=== PATIENT | male | born 1960 | race American Indian/Alaskan Native ===

== ENCOUNTER 2016-09-16 22:32 | Observation (INO) | payer OTHER ==
[2016-09-16 22:49] VITALS: BMI 24.3
--- NOTE | 2016-09-16 22:59 | ED PDOC ---
Arrival/HPI - General Chief Complaint: Alcohol Ingestion Time Seen by Provider: 09/16/16 22:51 Historian: Patient - History of Present Illness Narrative History of Present Illness (Text): 09/16/16 22:57 56-year-old male presents today found sitting between 2 cars. Patient complaining of chest pain. denies fevers or chills. Denies trauma or injury. Admits to drinking alcohol today. Patient denies abdominal pain or vomiting or diarrhea. Patient states chest pain started 1 hour ago while sitting on the couch. Past Medical History - Provider Review Nursing Documentation Reviewed: Yes - Travel History Have you recently traveled outside [place] w/in the past 3 mons?: No - Infectious Disease Hx of Infectious Diseases: None - Tetanus Immunization Tetanus Immunization: Up to Date - Past Medical History Past Medical History: No Previous - Cardiac Hx Cardiac Disorders: Yes Hx Hypertension: Yes - Pulmonary Hx Respiratory Disorders: No - Neurological Hx Neurological Disorder: Yes Other/Comment: hyperacive disorder - HEENT Hx HEENT Disorder: No - Renal Hx Renal Disorder: No - Endocrine/Metabolic Hx Endocrine Disorders: No - Hematological/Oncological Hx Blood Disorders: No - Integumentary Hx Dermatological Disorder: No - Musculoskeletal/Rheumatological Hx Arthritis: Yes Hx Back Pain: Yes Hx Fractures: Yes Hx Herniated Disk: Yes - Gastrointestinal Hx Gastrointestinal Disorders: Yes - Genitourinary/Gynecological Hx Genitourinary Disorders: No - Psychiatric Hx Psychophysiologic Disorder: Yes Hx Anxiety: Yes Hx Bipolar Disorder: Yes Hx Substance Use: Yes - Surgical History Other/Comment: SURGERY R/T TRAUMAleft leg x3 plates removed herniated discs - Anesthesia Hx Anesthesia: Yes Hx Anesthesia Reactions: No Hx Malignant Hyperthermia: No - Suicidal Assessment Feels Threatened In Home Enviroment: No Family/Social History - Physician Review Nursing Documentation Reviewed: Yes Family/Social History: Unknown Family HX Smoking Status: Heavy Smoker > 10 Cigarettes Daily Hx Alcohol Use: Yes Hx Substance Use: Yes Substance used: cocaine Hx Substance Use Treatment: No Allergies/Home Meds Allergies/Adverse Reactions: Allergies strawberry Allergy (Verified 09/16/16 22:52) SWELLING Home Medications: Home Meds Medication Instructions Recorded Confirmed Losartan [Cozaar] 50 mg PO DAILY 01/19/16 01/28/16 Review of Systems - Review of Systems Constitutional: absent: Fatigue, Fevers Respiratory: absent: SOB, Cough Cardiovascular: Chest Pain. absent: Palpitations Gastrointestinal: absent: Abdominal Pain, Nausea, Vomiting Genitourinary Male: absent: Dysuria Musculoskeletal: absent: Arthralgias, Back Pain, Neck Pain Skin: absent: Rash, Pruritis Neurological: absent: Headache, Dizziness Psychiatric: absent: Anxiety, Depression Physical Exam Vital Signs Reviewed: Yes Vital Signs Temp Pulse Resp BP Pulse Ox 09/16/16 22:54 97.7 F 72 20 184/116 H 98 Temperature: Afebrile Blood Pressure: Hypertensive Pulse: Regular Respiratory Rate: Normal Appearance: Positive for: Well-Appearing, Non-Toxic, Uncomfortable Pain Distress: None Mental Status: Positive for: Alert and Oriented X 3 - Systems Exam Head: Present: Atraumatic Mouth: Present: Moist Mucous Membranes Neck: Present: Normal Range of Motion Respiratory/Chest: Present: Clear to Auscultation, Good Air Exchange. No: Respiratory Distress, Accessory Muscle Use Cardiovascular: Present: Regular Rate and Rhythm, Normal S1, S2. No: Murmurs Abdomen: No: Tenderness Upper Extremity: Present: Normal ROM Lower Extremity: Present: Normal ROM. No: Edema Neurological: Present: GCS=15, Speech Normal Skin: Present: Warm, Dry, Normal Color. No: Rashes Psychiatric: Present: Alert, Oriented x 3 Medical Decision Making ED Course and Treatment: 09/16/16 22:59 pt with chest pain ; hypertensive. cbc; wnl cmp; wnl trop: 0.01 ekg; nsr at 67b/m right axis deviation cxr: no infiltrate uds; positive for cocaine and amphetamines asa nitro pt reassessment; pt feeling better after nitro and asa; bp improved to 160/[address] bueno; he would like to have patient admitted to hospitalist service. case discussed with Dr. enriquez will Admit observational status to Tele for chest pain r/o acs. impression; chest pain Admit observational status to tele; - Lab Interpretations Lab Results: 09/16/16 23:05 09/16/16 23:05 Lab Results 09/17/16 00:03: Urine Opiates Screen Negative, Urine Methadone Screen Negative, Ur Barbiturates Screen Negative, Ur Phencyclidine Scrn Negative, Ur Amphetamines Screen Positive H, U Benzodiazepines Scrn Negative, U Oth Cocaine Metabols Positive H, U Cannabinoids Screen Negative 09/16/16 23:51: Urine Color Yellow, Urine Appearance Clear, Urine pH 7.0, Ur Specific [place] 1.015, Urine Protein Negative, Urine Glucose (UA) Negative, Urine Ketones Negative, Urine Blood Negative, Urine Nitrate Negative, Urine Bilirubin Negative, Urine Urobilinogen 0.2, Ur Leukocyte Esterase Negative 09/16/16 23:05: WBC 5.6, RBC 5.23, Hgb 16.0, Hct 44.7, MCV 85.5, MCH 30.6, MCHC 35.8, RDW 12.7, Plt Count 275, MPV 9.5, Gran % 57.2, Lymph % (Auto) 32.1, [place] % (Auto) 8.6 H, Eos % (Auto) 1.6, Baso % (Auto) 0.5, Gran # 3.17, Lymph # 1.8, [place] # 0.5, Eos # 0.1, Baso # 0.03, PT 10.7, INR 0.99, APTT 26.5, Sodium 132, Potassium 3.6, Chloride 99, Carbon Dioxide 23, Anion Gap 14, BUN 16, Creatinine 1.1, Est GFR ( Amer) > 60, Est GFR (Non-Af Amer) > 60, Random Glucose 90 , Calcium 9.0, Total Bilirubin 1.6 H, AST 55, ALT 10, Alkaline Phosphatase 114, Lactate Dehydrogenase 522, Total Creatine Kinase 513 H, CK-MB (CK-2) 2.6, CK-MB (CK-2) % Cancelled, Troponin I 0.01, Total Protein 7.9, Albumin 4.1, Globulin 3.8, Albumin/Globulin Ratio 1.1, Salicylates 2, Acetaminophen < 10.0 L, Alcohol , Quantitative < 10 - RAD Interpretation Radiology Orders: 09/16/16 22:53 CHEST PORTABLE [RAD] Stat - Medication Orders Current Medication Orders: Discontinued Medications Aspirin (Aspirin) 325 mg PO STAT STA Stop: 09/16/16 23:18 Last Admin: 09/16/16 23:23 Dose: 325 MG Nitroglycerin (Nitro-Bid 2% Oint) 1 ea TOP STAT STA Stop: 09/16/16 23:22 Last Admin: 09/16/16 23:30 Dose: 1 EA Disposition/Present on Arrival - Present on Arrival Any Indicators Present on Arrival: No History of DVT/PE: No History of Uncontrolled Diabetes: No Urinary Catheter: No History of Decub. Ulcer: No History Surgical Site Infection Following: None - Disposition Have Diagnosis and Disposition been Completed?: Yes Diagnosis: Pain in the chest Disposition: HOSPITALIZED Disposition Time: 01:11 Patient Plan: Observation Condition: FAIR Discharge Instructions (ExitCare): Chest Pain (ED)
[2016-09-16 23:12] LABS: ADD MANUAL DIFF? NO
[2016-09-16] MEDS ORDERED: Nitroglycerin 2% Ointment Foilpak UD TOP STA (23:21)
[2016-09-16 23:28] LABS: ALB/GLOB RATIO 1.1 (1.1-1.8); ALKALINE PHOSPHATASE 114 U/L (38-133); ALT/SGPT 10 U/L (7-56); AST/SGOT 55 U/L (15-59); BILIRUBIN,TOTAL 1.6 mg/dL (0.2-1.3); BLOOD UREA NITROGEN 16 mg/dL (7-21); CARBON DIOXIDE 23 mmol/L (21-33); CHLORIDE 99 mmol/L (98-107); GFR AFRICAN-AMERICAN > 60; GLUCOSE,RANDOM 90 mg/dL (70-110); POTASSIUM 3.6 mmol/L (3.6-5.0); SODIUM 132 mmol/L (132-148); TOTAL PROTEIN 7.9 g/dL (5.8-8.3)
[2016-09-16 23:41] LABS: BASO # 0.03 K/mm3 (0.0-2.0); BASO % 0.5 % (0.0-3.0); EOS # 0.1 (0.0-0.7); EOS % 1.6 % (1.5-5.0); GRAN # 3.17 (1.4-6.5); GRAN % 57.2 % (50.0-68.0); HEMATOCRIT 44.7 % (42.0-52.0); LYMPH # 1.8 (1.2-3.4); LYMPH % 32.1 % (22.0-35.0); MEAN CELL VOLUME 85.5 fL (80.0-105.0); MEAN CORPUSCULAR HEMOGLOBIN 30.6 pg (25.0-35.0); MEAN CORPUSCULAR HGB CONC 35.8 g/dl (31.0-37.0); MEAN PLATELET VOLUME 9.5 fl (7.0-11.0); MONO # 0.5 (0.1-0.6); MONO % 8.6 % (1.0-6.0); PLATELET COUNT 275 10^3/uL (120.0-450.0); RED CELL DISTRIBUTION WIDTH 12.7 % (11.5-14.5); WHITE BLOOD COUNT 5.6 10^3/ul (4.5-11.0)
[2016-09-16 23:46] LABS: INR 0.99 (0.93-1.08); PARTIAL THROMBOPLASTIN TIME 26.5 Seconds (23.7-30.8)
[2016-09-16 23:50] LABS: TROPONIN I 0.01 ng/mL
[2016-09-17 00:17] LABS: URINE BILIRUBIN NEGATIVE (NEGATIVE); URINE BLOOD NEGATIVE (NEGATIVE); URINE GLUCOSE (UA) NEGATIVE (NEGATIVE); URINE KETONE NEGATIVE (NEGATIVE); URINE LEUKOCYTE ESTERASE NEGATIVE Leu/uL (NEGATIVE); URINE PROTEIN NEGATIVE mg/dL (<30 mg/dL); URINE UROBILINOGEN 0.2 E.U./dL (<1 E.U./dL)
[2016-09-17 00:23] LABS: URINE APPEARANCE CLEAR (CLEAR); URINE COLOR YELLOW (YELLOW)
--- NOTE | 2016-09-17 01:35 | CP.PCM.HP ---
History of Present Illness - History of Present Illness History of Present Illness: This is a 56 yo male with past medical hx of HTN and anxiety presenting with chest pain x 2 hrs. Pain began at pt's home when pt was drinking with his friends. Pt says he has had 3 bottles of smirnoff today. Pain came on gradually , diffusely across chest. Positive radiation to left shoulder, does report left hand feeling numb. Has happened before, but not as severe. Cannot say circumstances last time it happened. Denies drug use today. Describes sensation as pressure. Was 8/10, at time of eval 11/29. Pain occurs at rest and with exertion. Associated sob. Denies fevers, chills, cough. Pt took blood pressure pill after pain started. Did not feel relief, called ambulance. PMH: HTN, anxiety PSH: Plates in left leg Allergies: NKDA Home meds: Losartan FH: "a lot of people in my family have had heart attacks" Social: 1 ppd for over 30 yrs. 1-2 cans beer each week. Denies current drug use. Admits to past use of cocaine. Present on Admission - Present on Admission Any Indicators Present on Admission: No History of DVT/PE: No History of Uncontrolled Diabetes: No Urinary Catheter: No Decubitus Ulcer Present: No Review of Systems - Review of Systems All systems: reviewed and no additional remarkable complaints except Review of Systems: Negative except as per HPI. Past Patient History - Infectious Disease Hx of Infectious Diseases: None - Tetanus Immunizations Tetanus Immunization: Up to Date - Past Medical History & Family History Past Medical History?: Yes Pertinent Family History: [place] in family - Past Social History Smoking Status: Heavy Smoker > 10 Cigarettes Daily Chewing Tobacco Use: No Cigar Use: No Alcohol: Social Drugs: Denies Home Situation {Lives}: Alone Domestic Violence: Negative - CARDIAC Hx Cardiac Disorders: Yes Hx Hypertension: Yes - PULMONARY Hx Respiratory Disorders: No - NEUROLOGICAL Hx Neurological Disorder: Yes Other/Comment: hyperacive disorder - HEENT Hx HEENT Problems: No - RENAL Hx Chronic Kidney Disease: No - ENDOCRINE/METABOLIC Hx Endocrine Disorders: No - HEMATOLOGICAL/ONCOLOGICAL Hx Blood Disorders: No - INTEGUMENTARY Hx Dermatological Problems: No - MUSCULOSKELETAL/RHEUMATOLOGICAL Hx Arthritis: Yes Hx Back Pain: Yes Hx Fractures: Yes Hx Herniated Disk: Yes - GASTROINTESTINAL Hx Gastrointestinal Disorders: Yes - GENITOURINARY/GYNECOLOGICAL Hx Genitourinary Disorders: No - PSYCHIATRIC Hx Psychophysiologic Disorder: Yes Hx Anxiety: Yes Hx Bipolar Disorder: Yes Hx Substance Use: Yes - SURGICAL HISTORY Other/Comment: SURGERY R/T TRAUMAleft leg x3 plates removed herniated discs - ANESTHESIA Hx Anesthesia: Yes Hx Anesthesia Reactions: No Hx Malignant Hyperthermia: No Meds Allergies/Adverse Reactions: Allergies Allergy/AdvReac Type Severity Reaction Status Date / Time strawberry Allergy SWELLING Verified 09/16/16 22:52 Physical Exam - Constitutional Appears: Non-toxic, No Acute Distress - Head Exam Head Exam: ATRAUMATIC, NORMAL INSPECTION, NORMOCEPHALIC - Eye Exam Eye Exam: EOMI - ENT Exam ENT Exam: Mucous Membranes Moist - Neck Exam Neck exam: Positive for: Full Rom, Normal Inspection - Respiratory Exam Respiratory Exam: Clear to Auscultation Bilateral, NORMAL BREATHING PATTERN - Cardiovascular Exam Cardiovascular Exam: REGULAR RHYTHM - GI/Abdominal Exam GI & Abdominal Exam: Normal Bowel Sounds, Soft. absent: Tenderness - Extremities Exam Extremities exam: Positive for: normal inspection - Neurological Exam Neurological exam: Alert, Oriented x3 - Psychiatric Exam Psychiatric exam: Anxious - Skin Skin Exam: Dry, Intact, Normal Color, Warm Results - Vital Signs Recent Vital Signs: Last Vital Signs Temp 97.7 F 09/16/16 22:54 Pulse 62 09/17/16 01:12 Resp 18 09/17/16 01:12 BP 147/67 09/17/16 01:12 Pulse Ox 100 09/17/16 01:12 - Labs Result Diagrams: 09/16/16 23:05 09/16/16 23:05 Assessment & Plan - Assessment and Plan (Free Text) Assessment: This is a 56 yo male with past medical hx of HTN and anxiety presenting with chest pain 1. Chest pain, R/O ACS -asa 81 daily -trend cardiac enzymes, 1st trop negative -losartan daily -ekg shows sinus rhythm -urine positive for cocaine/amphetamines -CXR pending -nitro paste given in ER -hold on statin at this time 2. Hx of HTN -losartan daily 3. GI/DVT ppx -protonix -SCDs dw Dr. Domingo
[2016-09-17] MEDS ORDERED: Pantoprazole 40 mg EC Tab PO SCH (06:30)
--- NOTE | 2016-09-17 07:30 | RAD ---
HISTORY: chest pain COMPARISON: 02/27/2016 FINDINGS: LUNGS: No active pulmonary disease. The prior lingular patchy infiltrate at the left lung base is not appreciated on this exam PLEURA: No significant pleural effusion identified, no pneumothorax apparent. CARDIOVASCULAR: Probable top-normal heart size OSSEOUS STRUCTURES: Mild thoracic spondylosis VISUALIZED UPPER ABDOMEN: A 4 cm peripheral rim calcification similar-appearing. They prior chest PE protocol study 03/03/2014 reported a calcified right upper renal pole mass here OTHER FINDINGS: None. IMPRESSION: No active disease. Prior lingular infiltrate - resolved Right upper abdominal quadrant peripheral calcified mass -as detailed above
[2016-09-17 08:29] LABS: TROPONIN I < 0.01 ng/mL
--- NOTE | 2016-09-17 09:03 | CARD ---
APPROVED REPORT EKG Measurement Heart [id number] [id number] <Conclusion> Normal sinus rhythm Right axis deviation T wave abnormality, consider anterior ischemia Abnormal ECG
[2016-09-17 09:08] LABS: HEMATOCRIT 42.2 % (42.0-52.0); MEAN CORPUSCULAR HEMOGLOBIN 30.1 pg (25.0-35.0); MEAN CORPUSCULAR HGB CONC 34.6 g/dl (31.0-37.0); MEAN PLATELET VOLUME 9.4 fl (7.0-11.0); RED CELL DISTRIBUTION WIDTH 12.9 % (11.5-14.5); WHITE BLOOD COUNT 5.7 10^3/ul (4.5-11.0)
[2016-09-17 09:38] LABS: BLOOD UREA NITROGEN 17 mg/dL (7-21); CALCIUM 8.7 mg/dL (8.4-10.5); CARBON DIOXIDE 23 mmol/L (21-33); CHLORIDE 104 mmol/L (95-110); CHOLESTEROL 172 mg/dL (130-200); GFR AFRICAN-AMERICAN > 60; GLUCOSE,RANDOM 90 mg/dL (70-110); SODIUM 136 mmol/L (132-148)
[2016-09-17 12:35] VITALS: RESP 20
[2016-09-17 12:55] VITALS: O2SAT 98
[2016-09-17] MEDS ORDERED: Iodixanol 320 MG/ML 100 ML BOTTLE IV ONE (13:56)
--- NOTE | 2016-09-17 14:18 | CON ---
DATE: 09/17/2016 REASON FOR CONSULTATION: Chest pain. The patient is a 56-year-old -[place] male who has a history of hypertension and who is a merced rinku abuser. Presented because of chest pain. The patient underwent cardiac catheterization in 2013 at [facility], which revealed unremarkable coronary circulation. The patient at this time is chest pain free. MEDICATIONS: Aspirin 81 mg once a day, Cozaar 50 mg once a day, Protonix 40 mg p.o. once a day. REVIEW OF SYSTEMS: No dizziness or syncope. No shortness of breath. PHYSICAL EXAMINATION: GENERAL: The patient is a middle-aged, muscular, -[place] male who does not appear to be in any distress. VITAL SIGNS: Blood pressure 124/74, heart rate 52, temperature 97.6, respiration 20. HEENT: Normocephalic. NECK: No JVD. CHEST: Clear. HEART: S1, S2 regular. ABDOMEN: Soft. A scar of previous umbilical hernia surgery. EXTREMITIES: No edema, no calf tenderness. LABORATORIES: Urine drug screen is positive for both cocaine and amphetamines. SMA-7 today is withi n normal limits. Two troponins are within normal limits. Lipid profile is within normal limits. CB C today is within normal limits. PT, PTT are within normal limits. EKG reveals sinus rhythm with an terior T-wave inversion, possible anterior ischemia. ASSESSMENT: 1. Chest pain, myocardial infarction is ruled out. 2. History of cocaine abuse. RECOMMENDATIONS: Continue current aspirin 81 mg once a day, Cozaar at 50 mg once a day, Protonix at 40 mg once a day. Obtain an echocardiogram as well as CT angio of the chest to rule out pulmonary em bolism. Jose F Durham MD cc: [id number] TT: 09/17/2016 14:18:33 Confirmation # [id number] Dictation # [id number]
--- NOTE | 2016-09-17 14:45 | CT ---
PROCEDURE: CT Chest with contrast (Pulmonary Angiogram) HISTORY: r/o PE COMPARISON: 05/28/2014 TECHNIQUE: Axial computed tomography images were obtained of the chest in the pulmonary arterial phase of enhancement. Coronal and sagittal reformatted images were created and reviewed. Intravenous contrast dose: 100 cc of Visipaque Radiation dose: Total exam DLP = 425 mGy-cm. FINDINGS: PULMONARY ARTERIES: Unremarkable. No pulmonary embolism. AORTA: No acute findings. No thoracic aortic aneurysm. LUNGS: Unremarkable. No nodule, mass or pulmonary consolidation. PLEURAL SPACES: Unremarkable. No effusion or pneuomothorax. HEART: Unremarkable. No cardiomegaly. No significant pericardial effusion. LYMPH NODES: No lymphadenopathy. BONES, CHEST WALL: Unremarkable. No fracture or destructive lesion OTHER FINDINGS: There is a rim calcified mass in the upper pole of the right kidney measuring 4.4 cm. This is unchanged IMPRESSION: Unremarkable CT pulmonary angiogram. No pulmonary embolus. Stable appearance of calcified mass in the upper pole of the right kidney
[2016-09-17 16:03] LABS: TROPONIN I < 0.01 ng/mL
--- NOTE | 2016-09-17 17:36 | CARD ---
APPROVED REPORT EXAM: Two-dimensional and M-mode echocardiogram with Doppler and color Doppler. INDICATION LVFX/CP 2D DIMENSIONS Left Atrium (2D)3.8 (1.6-4.0cm)IVSd1.0 (0.7-1.1cm) LVDd4.3 (3.9-5.9cm)PWd1.1 (0.7-1.1cm) LVDs2.8 (2.5-4.0cm)FS (%) 35.1 % LVEF (%)64.7 (>50%) M-Mode DIMENSIONS Aortic Root3.30 (2.2-3.7cm)Aortic Cusp Exc.1.70 (1.5-2.0cm) Aortic Valve AoV Peak Qqjbkbgy606.0cm/sAoV VTI35.0cmAO Peak GR.13mmHg LVOT Peak Novnhwrx924.0cm/sLVOT VTI19.30cmAO Mean GR.7mmHg Mitral Valve MV E Crenkfua54.0cm/sMV A Kqhmbypi80.5cm/sE/A ratio0.7 TDI Lateral E' Peak V11.10cm/sMedial E' Peak V7.51cm/sE/Lateral E'5.2 E/Medial E'7.7 Pulmonary Valve PV Peak Jxlltqho57.5cm/sPV Peak Grad.3mmHg Tricuspid Valve TR Peak Walyovri479cv/sRAP JPVQDEBT90daHtHS Peak Gr.20mmHg [id number] LEFT VENTRICLE The left ventricle is normal size. There is normal left ventricular wall thickness. The left ventricular function is normal.EF-65% There is normal LV segmental wall motion. Transmitral Doppler flow pattern is Grade III-reversible restrictive diastolic dysfunction. No left ventricle thrombus noted on this study. There is no ventricular septal defect visualized. There is no left ventricular aneurysm. There is no mass noted in the left ventricle. RIGHT VENTRICLE The right ventricle is normal size. There is normal right ventricular wall thickness. The right ventricular systolic function is normal. ATRIA The left atrium size is normal. The right atrium size is normal. The interatrial septum is intact with no evidence for an atrial septal defect. AORTIC VALVE The aortic valve is thickened but opens well. There is trace to mild aortic regurgitation. There is no aortic valvular stenosis. There is no aortic valvular vegetation. MITRAL VALVE The mitral valve is thickened but opens well. Mitral regurgitation is trace to mild. There is no mitral valve stenosis. There is no evidence of mitral valve prolapse. TRICUSPID VALVE The tricuspid valve is normal in structure. There is trace to mild tricuspid regurgitation.RVSP-30 mmofHg. There is no tricuspid valve stenosis. There is no tricuspid valve prolapse or vegetation. PULMONIC VALVE The pulmonary valve is normal in structure. There is trace pulmonic valvular regurgitation. There is no pulmonic valvular stenosis. GREAT VESSELS The aortic root is normal in size. The ascending aorta is normal in size. The pulmonary artery is normal. The IVC is normal in size and collapses >50% with inspiration. PERICARDIAL EFFUSION There is no pleural effusion. There is no pericardial effusion. <Conclusion> Normal chamber Size. EF-65% Trace to Mild MR/TR/AR RVSP-30 mmof hg.
--- NOTE | 2016-09-17 17:55 | CP.PCM.DIS ---
<Jayjay Ramos - Last Filed: 09/19/16 00:31> Provider - Provider Date of Admission: 09/17/16 00:49 Attending physician: Robel Sparks MD Consults: Cardio - Dr. Durham Time Spent in preparation of Discharge (in minutes): 45 Diagnosis - Discharge Diagnosis (1) Pain in the chest Status: Acute Priority: Low (2) HTN (hypertension) Status: Chronic Priority: Medium Hospital Course - Lab Results Lab Results: Most Recent Lab Values WBC 5.7 10^3/ul (4.5-11.0) 09/17/16 07:45 RBC 4.85 10^6/uL (3.5-6.1) 09/17/16 07:45 Hgb 14.6 gm/dL (14.0-18.0) 09/17/16 07:45 Hct 42.2 % (42.0-52.0) 09/17/16 07:45 MCV 87.0 fL (80.0-105.0) 09/17/16 07:45 MCH 30.1 pg (25.0-35.0) 09/17/16 07:45 MCHC 34.6 g/dl (31.0-37.0) 09/17/16 07:45 RDW 12.9 % (11.5-14.5) 09/17/16 07:45 Plt Count 239 10^3/uL (120.0-450.0) 09/17/16 07:45 MPV 9.4 fl (7.0-11.0) 09/17/16 07:45 Gran % 57.2 % (50.0-68.0) 09/16/16 23:05 Lymph % (Auto) 32.1 % (22.0-35.0) 09/16/16 23:05 [place] % (Auto) 8.6 % (1.0-6.0) H 09/16/16 23:05 Eos % (Auto) 1.6 % (1.5-5.0) 09/16/16 23:05 Baso % (Auto) 0.5 % (0.0-3.0) 09/16/16 23:05 Gran # 3.17 (1.4-6.5) 09/16/16 23:05 Lymph # 1.8 (1.2-3.4) 09/16/16 23:05 [place] # 0.5 (0.1-0.6) 09/16/16 23:05 Eos # 0.1 (0.0-0.7) 09/16/16 23:05 Baso # 0.03 K/mm3 (0.0-2.0) 09/16/16 23:05 PT 10.7 Seconds (9.9-11.8) 09/16/16 23:05 INR 0.99 (0.93-1.08) 09/16/16 23:05 APTT 26.5 Seconds (23.7-30.8) 09/16/16 23:05 Sodium 136 mmol/L (132-148) 09/17/16 07:45 Potassium 4.0 mmol/L (3.6-5.0) 09/17/16 07:45 Chloride 104 mmol/L (95-110) 09/17/16 07:45 Carbon Dioxide 23 mmol/L (21-33) 09/17/16 07:45 Anion Gap 13 (10-20) 09/17/16 07:45 BUN 17 mg/dL (7-21) 09/17/16 07:45 Creatinine 1.2 mg/dL (0.5-1.4) 09/17/16 07:45 Est GFR ( Amer) > 60 09/17/16 07:45 Est GFR (Non-Af Amer) > 60 09/17/16 07:45 Random Glucose 90 mg/dL (70-110) 09/17/16 07:45 Calcium 8.7 mg/dL (8.4-10.5) 09/17/16 07:45 Total Bilirubin 1.6 mg/dL (0.2-1.3) H 09/16/16 23:05 AST 55 U/L (15-59) 09/16/16 23:05 ALT 10 U/L (7-56) 09/16/16 23:05 Alkaline Phosphatase 114 U/L (38-133) 09/16/16 23:05 Lactate Dehydrogenase 322 U/L (333-699) L 09/17/16 15:25 Total Creatine Kinase 340 U/L (35-230) H 09/17/16 15:25 CK-MB (CK-2) 2.2 ng/mL (0.0-3.6) 09/17/16 15:25 CK-MB (CK-2) % Cancelled 09/16/16 23:05 Troponin I < 0.01 ng/mL 09/17/16 15:25 Total Protein 7.9 g/dL (5.8-8.3) 09/16/16 23:05 Albumin 4.1 g/dL (3.0-4.8) 09/16/16 23:05 Globulin 3.8 gm/dL 09/16/16 23:05 Albumin/Globulin Ratio 1.1 (1.1-1.8) 09/16/16 23:05 Triglycerides 60 mg/dL (35-160) 09/17/16 07:45 Cholesterol 172 mg/dL (130-200) 09/17/16 07:45 LDL Cholesterol Direct 116 mg/dL (0-129) 09/17/16 07:45 HDL Cholesterol 44 mg/dL (29-60) 09/17/16 07:45 Urine Color Yellow (YELLOW) 09/16/16 23:51 Urine Appearance Clear (CLEAR) 09/16/16 23:51 Urine pH 7.0 (4.7-8.0) 09/16/16 23:51 Ur Specific [place] 1.015 (1.005-1.035) 09/16/16 23:51 Urine Protein Negative mg/dL (<30 mg/dL) 09/16/16 23:51 Urine Glucose (UA) Negative mg/dL (NEGATIVE) 09/16/16 23:51 Urine Ketones Negative mg/dL (NEGATIVE) 09/16/16 23:51 Urine Blood Negative (NEGATIVE) 09/16/16 23:51 Urine Nitrate Negative (NEGATIVE) 09/16/16 23:51 Urine Bilirubin Negative (NEGATIVE) 09/16/16 23:51 Urine Urobilinogen 0.2 E.U./dL (<1 E.U./dL) 09/16/16 23:51 Ur Leukocyte Esterase Negative [place]/uL (NEGATIVE) 09/16/16 23:51 Salicylates 2 mg/dL (2.0-20.0) 09/16/16 23:05 Urine Opiates Screen Negative (NEGATIVE) 09/17/16 00:03 Urine Methadone Screen Negative (NEGATIVE) 09/17/16 00:03 Acetaminophen < 10.0 ug/ml (10.0-20.0) L 09/16/16 23:05 Ur Barbiturates Screen Negative (NEGATIVE) 09/17/16 00:03 Ur Phencyclidine Scrn Negative (NEGATIVE) 09/17/16 00:03 Ur Amphetamines Screen Positive (NEGATIVE) H 09/17/16 00:03 U Benzodiazepines Scrn Negative (NEGATIVE) 09/17/16 00:03 U Oth Cocaine Metabols Positive (NEGATIVE) H 09/17/16 00:03 U Cannabinoids Screen Negative (NEGATIVE) 09/17/16 00:03 Alcohol, Quantitative < 10 mg/dL (0-10) 09/16/16 23:05 - Hospital Course Hospital Course: 56 y/o M with PMH of HTN and bipolar disorder presented to the hospital for chest pain x 1 day. [facility] [place] cocaine [facility] and came in to the hospital for sudden onset of chest pain. EKG shows NSR with no ST abnormalities. Pt was seen by Dr. Durham for cardio. Echocardiogram showed normal EF of 65% with no major abnormalities (See report). Chest CT showed no evidence of pulmonary embolism. Pt was advised to refrain from using recreational drugs. Discharge Exam - Head Exam Head Exam: ATRAUMATIC, NORMAL INSPECTION, NORMOCEPHALIC - Respiratory Exam Respiratory Exam: NORMAL BREATHING PATTERN, UNREMARKABLE - Cardiovascular Exam Cardiovascular Exam: RRR, +S1, +S2 - GI/Abdominal Exam GI & Abdominal Exam: Normal Bowel Sounds, Unremarkable. absent: Tenderness - Extremities Exam Extremities exam: normal inspection - Neurological Exam Neurological exam: Alert, Oriented x3 - Psychiatric Exam Psychiatric exam: Anxious, Normal Affect - Skin Skin Exam: Intact, Normal Color, Warm Discharge Plan - Follow Up Plan Condition: FAIR Disposition: HOME/ ROUTINE Instructions: Amphetamine (By mouth), Losartan (By mouth), Chest Pain (ED), How to Stop Smoking (GEN), Cigarette Smoking and Your Health (GEN), Cocaine Abuse (GEN), Abuse of Alcohol (GEN), Anxiety (GEN) Additional Instructions: Stop using illicit drugs Continue all home medications Return to hospital for return or worsening of symptoms Diet : Heart Healthy diet Patient refuses the flu and the pneumococcal vaccines as of this writing. <Robel Sparks - Last Filed: 09/19/16 06:36> Provider - Provider Date of Admission: 09/17/16 00:49 Attending physician: Robel Sparks MD Hospital Course - Lab Results Lab Results: Most Recent Lab Values WBC 5.7 10^3/ul (4.5-11.0) 09/17/16 07:45 RBC 4.85 10^6/uL (3.5-6.1) 09/17/16 07:45 Hgb 14.6 gm/dL (14.0-18.0) 09/17/16 07:45 Hct 42.2 % (42.0-52.0) 09/17/16 07:45 MCV 87.0 fL (80.0-105.0) 09/17/16 07:45 MCH 30.1 pg (25.0-35.0) 09/17/16 07:45 MCHC 34.6 g/dl (31.0-37.0) 09/17/16 07:45 RDW 12.9 % (11.5-14.5) 09/17/16 07:45 Plt Count 239 10^3/uL (120.0-450.0) 09/17/16 07:45 MPV 9.4 fl (7.0-11.0) 09/17/16 07:45 Gran % 57.2 % (50.0-68.0) 09/16/16 23:05 Lymph % (Auto) 32.1 % (22.0-35.0) 09/16/16 23:05 [place] % (Auto) 8.6 % (1.0-6.0) H 09/16/16 23:05 Eos % (Auto) 1.6 % (1.5-5.0) 09/16/16 23:05 Baso % (Auto) 0.5 % (0.0-3.0) 09/16/16 23:05 Gran # 3.17 (1.4-6.5) 09/16/16 23:05 Lymph # 1.8 (1.2-3.4) 09/16/16 23:05 [place] # 0.5 (0.1-0.6) 09/16/16 23:05 Eos # 0.1 (0.0-0.7) 09/16/16 23:05 Baso # 0.03 K/mm3 (0.0-2.0) 09/16/16 23:05 PT 10.7 Seconds (9.9-11.8) 09/16/16 23:05 INR 0.99 (0.93-1.08) 09/16/16 23:05 APTT 26.5 Seconds (23.7-30.8) 09/16/16 23:05 Sodium 136 mmol/L (132-148) 09/17/16 07:45 Potassium 4.0 mmol/L (3.6-5.0) 09/17/16 07:45 Chloride 104 mmol/L (95-110) 09/17/16 07:45 Carbon Dioxide 23 mmol/L (21-33) 09/17/16 07:45 Anion Gap 13 (10-20) 09/17/16 07:45 BUN 17 mg/dL (7-21) 09/17/16 07:45 Creatinine 1.2 mg/dL (0.5-1.4) 09/17/16 07:45 Est GFR ( Amer) > 60 09/17/16 07:45 Est GFR (Non-Af Amer) > 60 09/17/16 07:45 Random Glucose 90 mg/dL (70-110) 09/17/16 07:45 Calcium 8.7 mg/dL (8.4-10.5) 09/17/16 07:45 Total Bilirubin 1.6 mg/dL (0.2-1.3) H 09/16/16 23:05 AST 55 U/L (15-59) 09/16/16 23:05 ALT 10 U/L (7-56) 09/16/16 23:05 Alkaline Phosphatase 114 U/L (38-133) 09/16/16 23:05 Lactate Dehydrogenase 322 U/L (333-699) L 09/17/16 15:25 Total Creatine Kinase 340 U/L (35-230) H 09/17/16 15:25 CK-MB (CK-2) 2.2 ng/mL (0.0-3.6) 09/17/16 15:25 CK-MB (CK-2) % Cancelled 09/16/16 23:05 Troponin I < 0.01 ng/mL 09/17/16 15:25 Total Protein 7.9 g/dL (5.8-8.3) 09/16/16 23:05 Albumin 4.1 g/dL (3.0-4.8) 09/16/16 23:05 Globulin 3.8 gm/dL 09/16/16 23:05 Albumin/Globulin Ratio 1.1 (1.1-1.8) 09/16/16 23:05 Triglycerides 60 mg/dL (35-160) 09/17/16 07:45 Cholesterol 172 mg/dL (130-200) 09/17/16 07:45 LDL Cholesterol Direct 116 mg/dL (0-129) 09/17/16 07:45 HDL Cholesterol 44 mg/dL (29-60) 09/17/16 07:45 Urine Color Yellow (YELLOW) 09/16/16 23:51 Urine Appearance Clear (CLEAR) 09/16/16 23:51 Urine pH 7.0 (4.7-8.0) 09/16/16 23:51 Ur Specific [place] 1.015 (1.005-1.035) 09/16/16 23:51 Urine Protein Negative mg/dL (<30 mg/dL) 09/16/16 23:51 Urine Glucose (UA) Negative mg/dL (NEGATIVE) 09/16/16 23:51 Urine Ketones Negative mg/dL (NEGATIVE) 09/16/16 23:51 Urine Blood Negative (NEGATIVE) 09/16/16 23:51 Urine Nitrate Negative (NEGATIVE) 09/16/16 23:51 Urine Bilirubin Negative (NEGATIVE) 09/16/16 23:51 Urine Urobilinogen 0.2 E.U./dL (<1 E.U./dL) 09/16/16 23:51 Ur Leukocyte Esterase Negative [place]/uL (NEGATIVE) 09/16/16 23:51 Salicylates 2 mg/dL (2.0-20.0) 09/16/16 23:05 Urine Opiates Screen Negative (NEGATIVE) 09/17/16 00:03 Urine Methadone Screen Negative (NEGATIVE) 09/17/16 00:03 Acetaminophen < 10.0 ug/ml (10.0-20.0) L 09/16/16 23:05 Ur Barbiturates Screen Negative (NEGATIVE) 09/17/16 00:03 Ur Phencyclidine Scrn Negative (NEGATIVE) 09/17/16 00:03 Ur Amphetamines Screen Positive (NEGATIVE) H 09/17/16 00:03 U Benzodiazepines Scrn Negative (NEGATIVE) 09/17/16 00:03 U Oth Cocaine Metabols Positive (NEGATIVE) H 09/17/16 00:03 U Cannabinoids Screen Negative (NEGATIVE) 09/17/16 00:03 Alcohol, Quantitative < 10 mg/dL (0-10) 09/16/16 23:05 Attending/Attestation - Attestation I have personally seen and examined this patient.: Yes I have fully participated in the care of the patient.: Yes I have reviewed all pertinent clinical information, including history, physical exam and plan: Yes Notes (Text): 09/17/16 56 year old male with past medical history of hypertension and bipolar disorder who presented with complaint of chest pain x 1 day. He admitted to recent cocaine use. He was admitted to telemetry unit for observation. Serial cardiac enzymes were negative and ACS was ruled out. CT angio was negative and echocardiogram was reviewed as above. He was seen by cardiology. He was counselled on risks of continued substance. He is discharged home to follow up with his pmd. Case was discussed with his pmd Dr. Tripp earlier today. Robel Sparks MD Hospitalist.
[2016-09-17 18:05] VITALS: BP 143/71; PULSE 53; TEMP 97.7
== END 2016-09-17 18:59 | disposition home or self-care (01) ==
LOC: ED 22:32 → ERH 09-17 00:49 → 2RSO 09-17 01:46
PROVIDERS: ADMIT Internal Medicine; ATTEND Internal Medicine
DX: R07.9 Chest pain, unspecified (principal); F14.10 Cocaine abuse, uncomplicated; F31.9 Bipolar disorder, unspecified; I10 Essential (primary) hypertension; Z79.82 Long term (current) use of aspirin; Z79.899 Other long term (current) drug therapy; M19.90 Unspecified osteoarthritis, unspecified site; M54.9 Dorsalgia, unspecified; Z87.81 Personal history of (healed) traumatic fracture; M51.26 Other intervertebral disc displacement, lumbar region; F41.9 Anxiety disorder, unspecified; Z87.898 Personal history of other specified conditions; F17.210 Nicotine dependence, cigarettes, uncomplicated; R20.0 Anesthesia of skin; Z91.018 Allergy to other foods
CPT/HCPCS: 36415; 71010; 71275; 80048; 80053; 80061; 80320; 80324; 80329; 80345; 80346; 80349; 80353; 80358; 80361; 81003; 82550; 82553; 83615; 83992; 84484; 85025; 85027; 85610; 85730; 93005; 93306; 99285; G0378; Q9967

== ENCOUNTER 2016-10-31 10:35 | Emergency (ER) | payer OTHER ==
[2016-10-31 10:38] VITALS: BMI 27.4
[2016-10-31 10:42] VITALS: TEMP 97.7
--- NOTE | 2016-10-31 10:57 | ED PDOC ---
Arrival/HPI - General Chief Complaint: Flu-like Symptoms Time Seen by Provider: 10/31/16 10:48 Historian: Patient - History of Present Illness Narrative History of Present Illness (Text): 10/31/16 10:53 A 56 year old male, whose past medical history includes hypertension, presents to the emergency department complaining of nasal congestion for the past few days. Patient notes minimal posterior nasal drip. Contrary to triages note, patient denies any nausea. Patient denies any fever, chills, vomiting, abdominal pain, chest pain, shortness of breath, dyspnea on exertion, cough or any other complaints. PMD: Dr. Srinath Tripp Time/Duration: < week Symptom Course: Unchanged Quality: Other Context: Other Past Medical History - Provider Review Nursing Documentation Reviewed: Yes - Infectious Disease Hx of Infectious Diseases: None - Tetanus Immunization Tetanus Immunization: Up to Date - Past Medical History Past Medical History: No Previous - Cardiac Hx Cardiac Disorders: Yes Hx Hypertension: Yes - Pulmonary Hx Respiratory Disorders: No - Neurological Hx Neurological Disorder: Yes - HEENT Hx HEENT Disorder: No - Renal Hx Renal Disorder: No - Endocrine/Metabolic Hx Endocrine Disorders: No - Hematological/Oncological Hx Blood Disorders: No - Integumentary Hx Dermatological Disorder: No - Musculoskeletal/Rheumatological Hx Falls: No - Gastrointestinal Hx Gastrointestinal Disorders: Yes - Genitourinary/Gynecological Hx Genitourinary Disorders: No - Psychiatric Hx Psychophysiologic Disorder: Yes Hx Anxiety: Yes Hx Bipolar Disorder: Yes Hx Substance Use: No - Surgical History Hx Orthopedic Surgery: Yes (Left leg surgery with plates) - Anesthesia Hx Anesthesia: Yes Hx Anesthesia Reactions: No Hx Malignant Hyperthermia: No - Suicidal Assessment Feels Threatened In Home Enviroment: No Family/Social History - Physician Review Nursing Documentation Reviewed: Yes Family/Social History: No Known Family HX Smoking Status: Heavy Smoker > 10 Cigarettes Daily Hx Alcohol Use: Yes Frequency of alcohol use: Few days per week Hx Substance Use: No Substance used: cocaine Hx Substance Use Treatment: No Allergies/Home Meds Allergies/Adverse Reactions: Allergies strawberry Allergy (Verified 10/31/16 10:38) SWELLING Physical Exam - Physical Exam Narrative Physical Exam (Text): - Review of Systems Constitutional: Normal. absent: Fatigue, Weight Change, Fevers Eyes: Normal ENT: Nasal congestion. denies sore throat, denies tristhmus Respiratory: Normal. absent: SOB, Cough, Sputum Cardiovascular: absent: Chest Pain, Palpitations, Syncope Gastrointestinal: Normal. absent: Abdominal Pain, Diarrhea, Nausea, Vomiting Genitourinary: Normal. absent: Dysuria, Frequency, Hematuria Musculoskeletal: Normal. absent: Arthralgias, Back Pain, Neck Pain Skin: no rashes, no erythema Neurological: absent: Focal Weakness Endocrine: Normal Hemo/Lymphatic: Normal Psychiatric: No suicidal or homicidal ideations - Physical exam Patient appears age appropriate, speaking full sentences without difficulty - Systems Exam Head: Present: Atraumatic, Normocephalic Pupils: Present: PERRL Extraocular Muscles: Present: EOMI Conjunctiva: Present: Normal ENT: Non-erythematous posterior pharynx, No pain with hyoid manipulation, No muffled voice, no floor of mouth pain or elevation Mouth: Present: Moist Mucous Membranes Neck: Present: Normal Range of Motion. No: MIDLINE TENDERNESS, Paraspinal Tenderness Respiratory/Chest: Present: Clear to Auscultation, Good Air Exchange. No: Respiratory Distress, Accessory Muscle Use, Tachypneic Cardiovascular: Present: Regular Rate and Rhythm, Normal S1, S2, Peripheral Pulses Present. No: Murmurs Abdomen: Present: Normal Bowel Sounds, No: Tenderness, Peritoneal Signs, Rebound, Guarding, Distention Back: Present: Normal Inspection. No: Midline Tenderness, Paraspinal Tenderness Upper Extremity: Present: Normal Inspection. No: Cyanosis, Edema Lower Extremity: Present: Normal Inspection. No: Edema Neurological: Present: GCS=15, Speech Normal, cranial nerves II through XII fully intact with no cerebellar abnormality, neuro-sensory fully intact. No focal neurological deficits. Skin: Present: Warm, Dry, Normal Color. No: Rashes Lymphatic: Present: OX3, NI, NC Psychiatric: Present: Alert, Oriented x 3, Normal Insight, Normal Concentration Vital Signs Reviewed: Yes Vital Signs Temp Pulse Resp BP Pulse Ox 10/31/16 11:10 78 17 150/90 97 10/31/16 10:38 97.7 F 80 16 152/93 H 96 Temperature: Afebrile Blood Pressure: Hypertensive (States that he has a history of hypertension, asymptomatic) Pulse: Regular Respiratory Rate: Normal Appearance: Positive for: Well-Appearing Pain Distress: None Mental Status: Positive for: Alert and Oriented X 3 Medical Decision Making ED Course and Treatment: 10/31/16 10:53 Impression: A 56 year old male with nasal congestion. Physical exam unremarkable. Patient is well-appearing and in no acute distress. Differential Diagnosis included but are not limited to: Nasal congestion Progress Notes: Pt states he understands to return to the ER right away for new or worsening symptoms or for inability to f/u with PMD or specialist as instructed. Patient states that he fully agrees with and understands discharge instructions. States that he agrees with the plan and disposition. Verbalized and repeated discharge instructions and plan. I have given the patient opportunity to ask any additional questions. - Scribe Statement The provider has reviewed the documentation as recorded by the Christelibe Juliana Obregon Provider Scribe Attestation: All medical record entries made by the Scribe were at my direction and personally dictated by me. I have reviewed the chart and agree that the record accurately reflects my personal performance of the history, physical exam, medical decision making, and the department course for this patient. I have also personally directed, reviewed, and agree with the discharge instructions and disposition. Disposition/Present on Arrival - Present on Arrival Any Indicators Present on Arrival: No History of DVT/PE: No History of Uncontrolled Diabetes: No Urinary Catheter: No History of Decub. Ulcer: No History Surgical Site Infection Following: None - Disposition Have Diagnosis and Disposition been Completed?: Yes Diagnosis: Nasal congestion Disposition: HOME/ ROUTINE Disposition Time: 10:55 Patient Plan: Discharge Condition: GOOD Discharge Instructions (ExitCare): Allergic Rhinitis (ED), Cold Symptoms (ED) Additional Instructions: PLEASE RETURN TO THE EMERGENCY DEPARTMENT FOR NEW OR WORSENING SYMPTOMS. RETURN RIGHT AWAY IF YOU CANNOT FOLLOW UP WITH YOUR PRIMARY CARE DOCTOR, CLINIC, OR SPECIALIST IN 1-2 DAYS. Prescriptions: Fluticasone Propionate [Flonase] 1 spr NS BID #1 bottle Referrals: Will Hutchinson DO [Staff Provider] - Follow up with primary
[2016-10-31 11:11] VITALS: BP 150/90; PULSE 78; RESP 17; O2SAT 97
== END 2016-10-31 11:41 | disposition home or self-care (01) ==
LOC: ED 10:35
DX: R09.81 Nasal congestion (principal); I10 Essential (primary) hypertension

== ENCOUNTER 2018-03-30 22:18 | Emergency (ER) | payer OTHER ==
[2018-03-30 22:18] VITALS: BMI 27.4
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
[2018-03-30] MEDS ORDERED: TDAP Vaccine 0.5 mL Syr IM ONE (22:44)
[2018-03-30 22:48] VITALS: RESP 18; TEMP 98.5; O2SAT 100
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
[2018-03-30] MEDS ORDERED: Lidocaine 1% (10 ml) Inj INJ STA (22:50)
[2018-03-30] MEDS ORDERED: Lidocaine 1% 5ml Abboject ONE (23:02)
[2018-03-31 01:31] VITALS: BP 146/81; PULSE 63
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
== END 2018-03-31 01:55 | disposition home or self-care (01) ==
LOC: ED 22:18
DX: S01.81XA Laceration without foreign body of other part of head, initial encounter (principal); S01.01XA Laceration without foreign body of scalp, initial encounter; Y04.0XXA Assault by unarmed brawl or fight, initial encounter; F17.210 Nicotine dependence, cigarettes, uncomplicated; I10 Essential (primary) hypertension; Z23 Encounter for immunization

== ENCOUNTER 2018-03-31 02:45 | Emergency (ER) | payer OTHER ==
[2018-03-31 02:45] VITALS: BMI 27.4
[2018-03-31 02:49] VITALS: RESP 18; O2SAT 100
[2018-03-31 02:51] VITALS: TEMP 99.7
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
[2018-03-31 07:09] VITALS: BP 121/82; PULSE 75
== END 2018-03-31 06:45 | disposition home or self-care (01) ==
LOC: ED 02:45
DX: S01.81XD Laceration without foreign body of other part of head, subsequent encounter (principal); Y04.0XXD Assault by unarmed brawl or fight, subsequent encounter

== ENCOUNTER 2018-06-12 12:07 | Emergency (ER) | payer OTHER ==
[2018-06-12 12:28] VITALS: BMI 24.1
--- NOTE | 2018-06-12 13:57 | ED PDOC ---
Arrival/HPI - General Chief Complaint: Psychiatric Evaluation Time Seen by Provider: 06/12/18 12:08 Historian: Patient - History of Present Illness Narrative History of Present Illness (Text): 06/12/18 13:53 A 57 year old male, whose past medical history includes PTSD, presents to the emergency department brought in by EMS for psychiatric evaluation sicne earlier today. Patient reports he is currently on medication for his PTSD but states it is not working. Patient states he wanted to go back to the [facility] but EMS brought him to [facility]. Patient denies any SI, HI, hallucinations, fever, chills, shortness of breath, chest pain, diarrhea, nausea, vomiting, urinary symptoms, back pain, neck pain, headache, dizziness, or any other complaints. Time/Duration: Other (earlier today) Symptom Onset: Gradual Symptom Course: Unchanged Activities at Onset: Light Context: Home Past Medical History - Provider Review Nursing Documentation Reviewed: Yes - Infectious Disease Hx of Infectious Diseases: None - Tetanus Immunization Tetanus Immunization: Up to Date - Past Medical History Past Medical History: No Previous - Cardiac Hx Cardiac Disorders: Yes Hx Hypertension: Yes - Pulmonary Hx Respiratory Disorders: No - Neurological Hx Neurological Disorder: Yes - HEENT Hx HEENT Disorder: No - Renal Hx Renal Disorder: No - Endocrine/Metabolic Hx Endocrine Disorders: No - Hematological/Oncological Hx Blood Disorders: No - Integumentary Hx Dermatological Disorder: No - Gastrointestinal Hx Gastrointestinal Disorders: Yes - Genitourinary/Gynecological Hx Genitourinary Disorders: No - Psychiatric Hx Psychophysiologic Disorder: Yes Hx Anxiety: Yes Hx Bipolar Disorder: Yes Hx Substance Use: No - Surgical History Hx Orthopedic Surgery: Yes (Left leg surgery with plates) - Anesthesia Hx Anesthesia: Yes Hx Anesthesia Reactions: No Hx Malignant Hyperthermia: No - Suicidal Assessment Feels Threatened In Home Enviroment: No Family/Social History - Physician Review Nursing Documentation Reviewed: Yes Family/Social History: No Known Family HX Smoking Status: Heavy Smoker > 10 Cigarettes Daily Hx Alcohol Use: Yes Hx Substance Use: No Substance used: cocaine Hx Substance Use Treatment: No Allergies/Home Meds Allergies/Adverse Reactions: Allergies strawberry Allergy (Verified 10/31/16 10:38) SWELLING Review of Systems - Physician Review All systems were reviewed & negative as marked: Yes - Review of Systems Constitutional: absent: Fevers, Night Sweats Respiratory: absent: SOB Cardiovascular: absent: Chest Pain Gastrointestinal: absent: Diarrhea, Nausea, Vomiting Genitourinary Male: absent: Urinary Output Changes Musculoskeletal: absent: Back Pain, Neck Pain Neurological: absent: Headache, Dizziness Psychiatric: absent: Suicidal Ideation, Other (no Homicidal Ideation; no hallucinations) Physical Exam Vital Signs Reviewed: Yes Vital Signs Temp Pulse Resp BP Pulse Ox 06/12/18 12:40 98.1 F 90 18 112/75 99 Temperature: Afebrile Blood Pressure: Normal Pulse: Regular Respiratory Rate: Normal Appearance: Positive for: Well-Appearing - Systems Exam Head: Present: Atraumatic, Normocephalic Pupils: Present: PERRL Extroacular Muscles: Present: EOMI Conjunctiva: Present: Normal Respiratory/Chest: Present: Clear to Auscultation, Good Air Exchange. No: Respiratory Distress, Accessory Muscle Use Cardiovascular: Present: Regular Rate and Rhythm, Normal S1, S2. No: Murmurs Abdomen: No: Tenderness, Distention, Peritoneal Signs Back: Present: Normal Inspection Upper Extremity: Present: Normal Inspection. No: Cyanosis, Edema Lower Extremity: Present: Normal Inspection. No: Edema Neurological: Present: GCS=15, CN II-XII Intact, Speech Normal Skin: Present: Warm, Dry, Normal Color. No: Rashes Psychiatric: Present: Alert, Oriented x 3, Normal Insight, Normal Concentration. No: Suicidal Ideation, Homicidal Ideation, Hallucinations Medical Decision Making ED Course and Treatment: 06/12/18 14:00 Impression: 57 year old male presenting to the emergency department for psychiatric evaluation. Plan: -- Labs -- CBC -- Urinalysis -- Reassess and disposition Prior Visits: Notes and results from previous visits were reviewed. Progress Notes: 06/12/18 14:46 Patient says he does not want to wait and would rather go to the [facility]. Patient again denies SI, HI, is ambulatory without help and has a steady gait. ALVIN Benson is aware of patient's case and agrees. Leaving Against Medical Advice (AMA): The patient is choosing to leave against medical advice. I have personally explained to the patient that choosing to do so may result in permanent bodily harm or . I have discussed at great length that without further evaluation and monitoring there may be unforeseen circumstances and/or deterioration causing permanent bodily harm or as a result of their choice. The patient is alert, oriented, and shows the mental capacity to make clear decisions regarding the patients health care at this time. The patient continues to wish to leave against medical advice. In light of the patients decision to leave against medical advice, follow-up has been arranged and the patient is aware of the importance to following up as instructed. The patient has been advised that they should return to the emergency room immediately if they change their mind at any time, or if their condition begins to change or worsen in any way. - Scribe Statement The provider has reviewed the documentation as recorded by the Christelibchester Rico All medical record entries made by the Scribe were at my direction and personally dictated by me. I have reviewed the chart and agree that the record accurately reflects my personal performance of the history, physical exam, medical decision making, and the department course for this patient. I have also personally directed, reviewed, and agree with the discharge instructions and disposition. Disposition/Present on Arrival - Present on Arrival Any Indicators Present on Arrival: No History of DVT/PE: No History of Uncontrolled Diabetes: No Urinary Catheter: No History of Decub. Ulcer: No History Surgical Site Infection Following: None - Disposition Have Diagnosis and Disposition been Completed?: Yes Diagnosis: PTSD (post-traumatic stress disorder) Disposition: AGAINST MEDICAL ADVICE Disposition Time: 14:40 Condition: STABLE Forms: [employer] ([employer])
[2018-06-12 14:15] LABS: BASO # 0.03 K/mm3 (0.0-2.0); BASO % 0.4 % (0.0-3.0); EOS # 0.1 (0.0-0.7); GRAN # 4.13 (1.4-6.5); GRAN % 57.6 % (50.0-68.0); HEMOGLOBIN 14.3 g/dL (14.0-18.0); LYMPH # 1.7 (1.2-3.4); LYMPH % 23.9 % (22.0-35.0); MEAN CELL VOLUME 88.8 fl (80.0-105.0); MEAN CORPUSCULAR HEMOGLOBIN 29.8 pg (25.0-35.0); MEAN CORPUSCULAR HGB CONC 33.6 g/dl (31.0-37.0); MEAN PLATELET VOLUME 9.8 fl (7.0-11.0); MONO # 1.2 (0.1-0.6); MONO % 16.1 % (1.0-6.0); RBC 4.8 10^6/uL (3.5-6.1); RED CELL DISTRIBUTION WIDTH 13.6 % (11.5-14.5); WHITE BLOOD COUNT 7.2 10^3/uL (4.5-11.0)
[2018-06-12 14:19] LABS: PH,URINE 6.5 (4.7-8.0); URINE BILIRUBIN NEGATIVE (NEGATIVE); URINE BLOOD NEGATIVE (NEGATIVE); URINE GLUCOSE (UA) NEGATIVE (NEGATIVE); URINE LEUKOCYTE ESTERASE TRACE Leu/uL (NEGATIVE); URINE PROTEIN NEGATIVE mg/dL (<30 mg/dL)
[2018-06-12 14:26] LABS: ALB/GLOB RATIO 1.1 (1.1-1.8); ALT/SGPT 42 U/L (7-56); AST/SGOT 68 U/L (17-59); BLOOD UREA NITROGEN 22 mg/dL (7-21); CALCIUM 8.9 mg/dL (8.4-10.5); GFR NON-AFRICAN AMERICAN 57; URINE APPEARANCE CLEAR (CLEAR); URINE COLOR YELLOW (YELLOW)
[2018-06-12 14:27] LABS: ACETAMINOPHEN < 10.0 ug/ml (10.0-20.0); SALICYLATE < 1 mg/dL (2.0-20.0)
[2018-06-12 14:40] LABS: BARBITURATES, UR NEGATIVE (NEGATIVE)
[2018-06-12 14:43] LABS: URINE EPITHELIAL CELLS 0 - 2 /hpf (0-5); URINE RBC 0 - 2 /hpf (0-2)
[2018-06-12 14:44] LABS: URINE BACTERIA NEG /hpf
[2018-06-12 14:50] LABS: BENZODIAZEPINES, UR NEGATIVE (NEGATIVE); OPIATES, UR NEGATIVE (NEGATIVE); PHENCYCLIDINE, UR NEGATIVE (NEGATIVE)
[2018-06-12 15:54] VITALS: PULSE 75; RESP 19; TEMP 98
[2018-06-12 15:56] VITALS: BP 124/53; O2SAT 100
--- NOTE | 2018-06-13 09:09 | CARD ---
APPROVED REPORT Date of service: 06/12/2018 EKG Measurement Heart [id number] <Conclusion> Normal sinus rhythm PRWP Improved repolarization c/w ECG 09/16/16
== END 2018-06-12 15:54 | disposition left against medical advice (07) ==
LOC: ED 12:07
DX: F43.10 Post-traumatic stress disorder, unspecified (principal); I10 Essential (primary) hypertension; F31.9 Bipolar disorder, unspecified; F17.210 Nicotine dependence, cigarettes, uncomplicated